=== PATIENT | female | born 1990 | race Caucasian/White ===

== ENCOUNTER → 2018-05-31 09:54 | Outpatient (CLI) | payer OTHER, SELFPAY ==
--- NOTE | 2018-05-31 09:56 | DI.RAD.S_ITS ---
PROCEDURE: XR KNEE LT 3V INDICATIONS: L knee pain TECHNIQUE: 3 views of the knee were acquired. COMPARISON: None. FINDINGS: Bones: No fractures or dislocations. No suspicious bony lesions. Soft tissues: No joint effusion. No suspicious soft tissue calcifications. IMPRESSION: No fracture. No osseous lesion. If symptoms and/or clinical suspicion for pathology persists, further assessment with repeat radiographs (7-10 days) or advanced imaging (e.g. CT, MRI or bone scan) may be helpful. Dictated by: Ashtyn Miranda MD, PhD on 05/31/2018 at 10:17 Approved by: Ashtyn Miranda MD, PhD on 05/31/2018 at 10:17
== END ==
PROVIDERS: PCP Family Medicine; Visit Provider Physician Assistant
DX: M25.562 Pain in left knee (principal)
CPT/HCPCS: 73562

== ENCOUNTER → 2019-05-31 12:45 | Outpatient (CLI) | payer OTHER, SELFPAY ==
[2019-05-31 13:56] LABS: Appearance Urine UA CLEAR; Bilirubin Urine UA NEGATIVE (NEGATIVE); Color Urine UA YELLOW; Glucose Urine UA NEGATIVE (Negative); Ketones Urine UA NEGATIVE (NEGATIVE); Leukocyte Esterase Urine UA 1+ (NEGATIVE); Nitrite Urine UA NEGATIVE (Negative); Occult Blood Urine UA 2+ (Negative); Protein Urine UA NEGATIVE (Negative); Specific Gravity Urine UA <=1.005 (1.000-1.035); Urobilinogen Urine UA 0.2 E.U./dL (0.2)
[2019-05-31 14:24] LABS: pH Urine UA 6.5 (4.5-8.0)
[2019-05-31 14:29] LABS: Bacteria Urine Many (>30); Culture Indicated Urine Specimen Cultured; RBC Urine 1-5/HPF (0-5/HPF); Squamous Epithelial Cell Urine 1-5 /HPF (0-5/HPF); WBC Urine 5-10/HPF (0-5/HPF)
== END ==
PROVIDERS: PCP Family Medicine; Visit Provider Family Medicine
DX: R30.0 Dysuria (principal); R31.9 Hematuria, unspecified
CPT/HCPCS: 81001; 87077; 87086; 87186

== ENCOUNTER → 2020-10-04 14:41 | Outpatient (CLI) | payer OTHER, SELFPAY ==
--- NOTE | 2020-10-04 14:42 | DI.RAD.S_ITS ---
PROCEDURE: XR ELBOW RT MIN 3V INDICATIONS: r elbow pain TECHNIQUE: 3 views of the elbow were acquired. COMPARISON: [facility], CR, XR FOREARM RT 2V, 10/04/2020, 14:47. [facility], , FOREARM RIGHT, 02/15/2014, 17:59. FINDINGS: Bones: Mild irregularity at the radial head seen only on 1 projection. No dislocations. No suspicious bony lesions. Soft tissues: Small posterior elbow joint effusion. No suspicious soft tissue calcifications. IMPRESSION: Mild irregularity at the radial head seen only on 1 projection. Small posterior elbow joint effusion. Findings suspicious for nondisplaced fracture. Correlate for point tenderness. Additional views of the radial head or CT may be helpful for further evaluation. Dictated by: Lex Garcia M.D. on 10/04/2020 at 14:33 Approved by: Lex Garcia M.D. on 10/04/2020 at 14:37
--- NOTE | 2020-10-04 14:42 | DI.RAD.S_ITS ---
PROCEDURE: XR FOREARM RT 2V INDICATIONS: r forearm pain TECHNIQUE: 2 views of the forearm were acquired. COMPARISON: [facility], VLAD, XR ELBOW RT MIN 3V, 10/04/2020, 14:49. [facility], VLAD, FOREARM RIGHT, 02/15/2014, 17:59. FINDINGS: Bones: No fractures or dislocations. No suspicious bony lesions. Soft tissues: No suspicious soft tissue calcifications or masses. IMPRESSION: No acute osseous abnormality. Dictated by: Lex Garcia M.D. on 10/04/2020 at 14:31 Approved by: Lex Garcia M.D. on 10/04/2020 at 14:33
== END ==
PROVIDERS: PCP Family Medicine; Referring Provider Physician Assistant; Visit Provider Physician Assistant
DX: M25.521 Pain in right elbow (principal); M79.601 Pain in right arm; M25.421 Effusion, right elbow
CPT/HCPCS: 73080; 73090

== ENCOUNTER → 2020-10-09 11:13 | Outpatient (CLI) | payer OTHER, SELFPAY ==
--- NOTE | 2020-10-09 11:32 | DI.CT.S_ITS ---
PROCEDURE: CT UE RT WO CON INDICATIONS: Displaced fracture of head of right radius, initia TECHNIQUE: Noncontrast 1-1.5 mm axial sections were acquired through the elbow joint, with coronal and sagittal reformats. COMPARISON: [facility], CR, XR ELBOW 1 OR 2 VIEWS RIGHT, 10/06/2020, 11:03. [facility], CR, XR ELBOW RT MIN 3V, 10/04/2020, 14:49. FINDINGS: Image quality: Excellent. Bones: Displaced fracture of the radial head. Fracture involves the anterior-medial margin of the radial head. Fracture is displaced/depressed approximately 2 millimeters. No dislocation/subluxation. Soft tissues: Elbow joint effusion noted. No soft tissue fluid collections or edema. IMPRESSION: Radial head fracture. Dictated by: Ashtyn Miranda MD, PhD on 10/09/2020 at 11:51 Approved by: Ashtyn Miranda MD, PhD on 10/09/2020 at 11:54
== END ==
PROVIDERS: PCP Family Medicine; Referring Provider Orthopaedic Surgery; Visit Provider Orthopaedic Surgery
DX: S52.121A Displaced fracture of head of right radius, initial encounter for closed fracture (principal); X58.XXXA Exposure to other specified factors, initial encounter
CPT/HCPCS: 73200

== ENCOUNTER → 2020-10-14 09:44 | Outpatient (CLI) | payer OTHER, SELFPAY ==
[2020-10-14 11:06] LABS: COVID19 -Nasal RAPID Negative (Negative)
== END ==
PROVIDERS: PCP Family Medicine; Visit Provider Student in an Organized Health Care Education/Training Program
DX: Z20.822 Contact with and (suspected) exposure to COVID-19 (principal)
CPT/HCPCS: 87635

== ENCOUNTER 2020-10-15 09:18 | Day surgery (SDC) | payer OTHER, SELFPAY ==
[2020-10-15] MEDS: LACTATED RINGERS 1,000 ML 42 ML IV (09:49)
[2020-10-15] MEDS: GABAPENTIN 300 MG CAPSULE PO (09:54)
[2020-10-15] MEDS: SCOPOLAMINE 1 PATCH TOP (09:54)
[2020-10-15] MEDS: ACETAMINOPHEN 325 MG TABLET 975 MG PO (09:54)
[2020-10-15 10:10] VITALS: BP 116/86; PULSE 96; RESP 11; TEMP 37.3; O2SAT 99; BMI 29.9
--- NOTE | 2020-10-15 10:32 | PM.PREOP ---
Pre-operative Note COVID-19 COVID-19 status: Negative Result date/Date tested (Pos, Neg/Pending): 10/14/20 Interval Note History & Physical reviewed/Exam performed by Physician: Yes Changes to H&P: No
--- NOTE | 2020-10-15 10:32 | PM.HP.1 ---
History of Present Illness History of Present Illness Date Patient Seen: 10/15/20 Time Patient Seen: 10:32 Chief complaint: SDC Narrative: 30-year-old female status post a fall resulting in a right radial head fracture Patient History Medical History Radial head fracture Family & Social History Social History: household members spouse Tobacco & Substance use: Smoking Status Never smoker alcohol intake current alcohol intake frequency a few times a week Substance Use Type other Meds Home Medications and Allergies Home Medications Medication Instructions Recorded Confirmed Type levalbuterol tartrate 45 2 puff INHALATION Q4HP #1 10/01/18 10/15/20 Rx mcg/actuation aerosol inhaler inhalation norethindrone acetate 1 mg-ethinyl See Rx Instructions .ROUTE 10/06/20 10/15/20 Rx estradiol 20 mcg tablet .COMPLEX #63 tab Allergies Allergy/AdvReac Type Severity Reaction Status Date / Time No Known Drug Allergies Allergy Verified 10/15/20 10:00 Review of Systems Review of Systems ROS: Yes All systems reviewed with the patient and are negative except as otherwise documented Exam Vital Signs (past 8 hours): - 10/15/20 10:10 Temperature 99.2 F Pulse Rate 96 H Respiratory Rate 11 L Blood Pressure 116/86 Pulse Oximetry 99 Oxygen Delivery Method Room Air Narrative Exam Narrative: Patient was some bruising and swelling over the lateral aspect of the elbow. Patient's skin intact. Is able to gently range the elbow but with some pain. No sign of any instability. Full range of motion of the wrist and fingers. Ulnar, median, and radial nerve is intact both motor and sensory function. Assessment & Plan Assessment & Plan narrative: Patient with a displaced radial head fracture requiring surgical fixation. I went over the risks and limitations associated with the procedure and all of her questions and concerns were answered to her full satisfaction. The risk, benefits, alternatives, possible complications, operative course, and postop outcomes were discussed. Complications including but not limiting to bleeding, infection, fracture, nerve injury, continued pain postoperatively or instability postoperatively were discussed in detail. Medical complications including but not limited to deep venous thrombosis event, anesthesia complications with excessive bleeding, vascular events or cardiac events and other possible complications were discussed in detail. Need for postoperative rehabilitation and anticipated hospital stay and clinical course were discussed in detail. Patient acknowledges understanding and elects to proceed with surgery.
--- NOTE | 2020-10-15 11:18 | SUR.PREOP ---
Block start time 1109 . Monitoring initiated and maintained throughout procedure. No Oxygen and medications given per anesthesiologist instructions. Patient remained stable throughout procedure, no adverse reactions noted. Block end time 1113.
[2020-10-15] MEDS: CEFAZOLIN 2 GM/100 ML FROZ.PIGGY IV (11:30)
--- NOTE | 2020-10-15 11:37 | PM.PROC.1 ---
Procedures Date/Time Date of procedure: 10/15/20 Time of procedure: 11:13 Nerve Block Time out performed: Yes Nerve blocks: brachial plexus (supraclavicular) Procedure successful: Yes Patient tolerated procedure: well Complications: none Additional comments: Supraclavicular Block for post-op pain at surgeon request. Patient was positioned, IV, O2, monitors and rescue meds available. Prepped, timeout performed. Target identified under continuous ultrasound guidance. 15mL of bupivicaine 0.5% injected with intermittent aspiration. Picture taken and saved on machine (used the ED ultrasound for adequate nerve visualization, but lacks a printer; will attempt to upload the picture to EMR). No blood, no paresthesias, no acute complications. Patient endorses arm numbness prior to anesthesia induction. Joaquina VARGHESE Anesthesiologist
--- NOTE | 2020-10-15 11:52 | SUR.OPER ---
Supine on padded OR bed, head on pillow, left arm secured on padded arm board at <90 degrees abduction, Right arm on large padded arm board controlled by surgeon, legs uncrossed, safety belt at thigh, tape over blanket over lower legs.
[2020-10-15 12:47] VITALS: BP 115/77; PULSE 113; RESP 14; TEMP 36.7; O2SAT 96
--- NOTE | 2020-10-15 12:50 | PM.OP.1 ---
Operative Date/Time/Diagnoses Date of procedure: 10/15/20 Time of procedure: 11:30 Pre-op diagnosis: Radial head fracture Post-op diagnosis: same Procedure & Clinicians Procedure: Open reduction internal fixation of a radial head fracture Same procedure as scheduled: Yes Indications: Displaced radial head Surgeon: Fox Noble Click Yes if Unassisted: No Anesthesia Type: General and Peripheral nerve block Operative Notes Findings: Displaced radial head fracture in 3 separate pieces. Small area of cartilage loss at the capitellum. Small loose body of cartilage in the joint space. No sign of any ligamentous instability. Closure Type: primary Applied: implant(s) (Two AcuTrak screws. 16 mm mini screw and a 14 mm micro screw) Estimated Blood Loss (mL): 5 Blood products transfused: none Tourniquet time (min): 55 Procedure in detail: On date of service, patient was met in the holding area where the operative site was signed and witnessed by the OR staff. The surgery was once again discussed with the patient and any remaining questions or concerns were answered to the patient's full satisfaction. Time-out was performed verifying patient's name procedure and operative site. Patient was taken back to the operating theater and placed on the operating table in a supine position. Great care was taken to ensure that all bony prominences were appropriately padded. Well-padded tourniquet was placed up along the upper extremity. Another time-out was performed verifying patient's name, procedure, and operative site. The upper extremity was then prepped and draped in the normal sterile fashion. Esmarch was used to exsanguinate the limb and the tourniquet was turned up to 250 mm of mercury. A curvilinear incision was made centered over the radial head. Ten blade was used to incise through skin. Electrocautery used to achieve hemostasis. Continued sharp dissection was performed using the 15 blade. Retractors were placed to me a good visualization of the extensor tendons attached to the lateral epicondyle. A Kohker approach was performed splitting the interval at the extensor tendons giving us good visualization of the radial head. Suction and irrigation was used to remove this remaining hematoma. There was a small flap of cartilage tissue in the joint space which was removed as well. No sign of any other significant bony injury. Patient did have a small area of loss of cartilage on the capitellum. Using a Guthrie elevator, both fragments of the radial head fracture were elevated and reduced decreasing the step-off at the articular surface as well as the gapping at the fracture site. K-wires were placed for provisional fixation and a 2 point reduction forceps was also used to compress and stabilize the fracture fragments. C-arm was brought in verifying overall reduction. Once we were satisfied with the reduction the K-wire lengths were measured in a additional K-wire was placed for a de-rotational fixation. The drill was used to drill to the appropriate length of the AcuTrak screw. And in the AcuTrak screw was placed in the 1st fragment providing significant compression at fracture site. A smaller AcuTrak screw was placed at the smaller fragment providing similar compression and fixation. Elbow was taken through range of motion in both flexion and extension as well as supination and pronation with no sign of any locking or catching. The wound was evaluated once again and no sign of any other additional bony or cartilage fragments. The joint space was copiously irrigated and then the wound was closed in a layered fashion. The split in the extensor tendons and joint capsule was closed with Ethibond followed by Vicryl and Monocryl. The wound was cleaned, dried, and dressed the patient was placed into a posterior splint. Patient was extubated and taken to the PACU in stable condition. Complications: none Post-operative Condition: stable Disposition: PACU Plan for aftercare: No restrictions of range of motion. But will limit lifting for the next 6 weeks.
[2020-10-15 12:52] VITALS: BP 120/69; PULSE 90; RESP 14; O2SAT 94
[2020-10-15 12:57] VITALS: BP 110/64; PULSE 86; RESP 14; TEMP 36.6; O2SAT 95
--- NOTE | 2020-10-15 13:04 | SUR.PHASEI ---
Surgeon placed prescriptions for Percocet 5mg tabs and Vistaril 25mg caps on pt chart for pt to take to her pharmacy at discharge.
--- NOTE | 2020-10-15 13:06 | SUR.PHASEI ---
Surgeon updated pt that he has spoken with Eliana (family memebr)
[2020-10-15] MEDS: OXYCODONE IR 5 MG TABLET PO (13:09)
[2020-10-15] MEDS: ONDANSETRON 4 MG/2 ML INJ IV (13:09)
[2020-10-15 13:20] VITALS: BP 114/67; PULSE 88; RESP 14; TEMP 36.6; O2SAT 94
[2020-10-15 13:42] VITALS: BP 119/71; PULSE 81; RESP 13; TEMP 36.2; O2SAT 95
== END 2020-10-15 14:04 | disposition home or self-care (01) ==
PROVIDERS: PCP Family Medicine; Referring Provider Family Medicine; Visit Provider Orthopaedic Surgery
PROC: 0RSL04Z Reposition Right Elbow Joint with Internal Fixation Device, Open Approach (ICD-10-PCS; CPT 24665; principal; 2020-10-15 10:45)
DX: S52.124A Nondisplaced fracture of head of right radius, initial encounter for closed fracture (principal); W01.0XXA Fall on same level from slipping, tripping and stumbling without subsequent striking against object, initial encounter; Y93.51 Activity, roller skating (inline) and skateboarding; J45.909 Unspecified asthma, uncomplicated
CPT/HCPCS: 24665; 64450; J0690; J1100; J2250; J2405; J2704

== ENCOUNTER 2022-09-09 08:01 | Day surgery (SDC) | payer OTHER, SELFPAY ==
[2022-09-06 15:22] VITALS: BMI 33.9
--- NOTE | 2022-09-09 | PATH_ITS ---
[facility] Accession Number: [id number] No. of containers..01 Tissue . 01 Material submitted: . cervix - CUT AT 12 O'CLOCK . 01 Diagnosis: A. 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 HSIL appears free from all inked/cauterized margins. Negative for glandular dysplasia and invasive malignancy. . COMMENT: HSIL is present in the 12-3-6-9 o'clock quadrants. [facility] 09/15/2022 1643 Local . 01 Electronically signed: . Radha Nevarez MD, Pathologist NPI- [id number] . 01 Gross description: . The specimen is received in formalin labeled with the patient's name, , and LEEP cone cut at 12 o'clock, and consists of an incised circular excision of cervix with the cut designating 12 o'clock per the requisition. The specimen measures 2.3 cm from 12 o'clock to 6 o'clock, 1.7 cm from 3 o'clock to 9 o'clock, and is excised to a depth of 0.7 cm. The ectocervix is overton, soft, and finely granular. The cervical os is reapproximated to be slit like and measures 0.3 cm in diameter. The endocervical margin is inked orange while the remaining stromal margins are inked blue. The specimen is radially sectioned and submitted entirely as follows: A1: 12 o'clock to 3 o'clock. A2: 3 o'clock to 6 o'clock. A3: 6 o'clock to 9 o'clock. A4: 9 o'clock to 12 o'clock. ([id number]) /MIKEY 09/13/2022 1106 Local . 01 Pathologist provided ICD-10: N87.1 . 01 CPT . 941986 Specimen Comment: A courtesy copy of this report has been sent to [phone] Performed at: 01 [facility] [address] [place] [address], [place], [place] [id number] MD Avelino Ch MD Phone: [phone]
[2022-09-09] MEDS: LACTATED RINGERS 1,000 ML 42 ML IV (08:11)
[2022-09-09 08:28] VITALS: BP 117/81; PULSE 85; RESP 16; TEMP 36.3; O2SAT 100; BMI 33.3
--- NOTE | 2022-09-09 09:34 | PM.PREOP ---
Pre-operative Note COVID-19 COVID-19 status: Not tested Criteria for continued procedure: Non-surgical alternatives not available or appropriate per current SOC Interval Note History & Physical reviewed/Exam performed by Physician: Yes Changes to H&P: No
--- NOTE | 2022-09-09 10:01 | SUR.OPER ---
Lithotomy on padded OR bed, head on pillow, arms secured on padded arm boards at <90 degrees abduction. Legs secured in padded yellow fins stirrups. Pt positioned per direction and supervision of Dr Grey.
[2022-09-09] MEDS: POTASSIUM IODIDE/IODINE 473 ML SOLUTION TOP (10:05)
[2022-09-09] MEDS: ACETIC ACID 500 ML IRRIG 20 ML TOP (10:06)
[2022-09-09 10:17] VITALS: BP 136/88; PULSE 96; RESP 15; TEMP 36.8; O2SAT 98
--- NOTE | 2022-09-09 10:18 | P.OP_ITS ---
Operative Date/Time/Diagnoses Date of procedure: 09/09/22 Time of procedure: 09:50 Pre-op diagnosis: High-grade dysplasia of the cervix Post-op diagnosis: same Procedure & Clinicians Procedure: Procedures Operation Date: 09/09/22 09:15 Actual Procedure Side Surgeon p LEEP Procedure Not Applicable Miky Grey MD Indications: Joe is a 31 yo G0, LMP 08/08/2022 who presented in referral for her PCP for LEEP consult.? Pap smears were normal until her Pap in January 2021 which showed positive high-risk HPV (non 16/18/45) and no cytologic abnormalities except for some reactive changes.? Her more recent Pap smear performed in April 2022 however showed ASC-US with positive high-risk HPV and colposcopy performed in May 2022 showed ROSALIND 2 at 9:00 and a positive ECC with HGSIL (ROSALIND 2).? Counseled re: the nature of, causes of, and clinical course of HPV related HGSIL.? Options for treatment reviewed and patient desires to proceed with LEEP.? Patient presents today for her scheduled surgery.? Contraception is by monocyclic OC's. Surgeon: Miky Grey Anesthesia Type: General Operative Notes Findings: Well defined area of AWE at TZ, completely excised via LEEP. Closure Type: not applicable Specimen(s): other (LEEP cone, cut at 12:00, ECC) Estimated blood loss (mL): 25 Blood products transfused: none Procedure in detail: With the patient under satisfactory general anesthesia in the modified dorsal lithotomy position, the perineum was prepped and draped in the usual manner for LEEP procedure. A pre-surgical safety time-out was then taken in accordance with [facility] Main OR protocols. A LEEP speculum was then inserted in the vagina and the cervix easily visualized. Vinegar was placed in the vagina and sufficient time was taken to permit development of AWE. Once the area to be sized was well identified, loop excision was performed with a 20 x 15 mm loop using 50 w of pure cut. Specimen was cut at 12:00 p.m. and submitted as a pathologic specimen. ECC was performed with work-in box curette producing minimal amounts of additional tissue. Using a ball cautery with 60 w of coagulation, the LEEP bed was rendered completely hemostatic. Procedure was then terminated by removal of the LEEP speculum from the vagina. Patient was awakened and transferred to the PACU for a period of observation and recovery after having tolerated the procedure well. Complications: none Post-operative Condition: stable Disposition: PACU Plan for aftercare: Routine postoperative care
[2022-09-09 10:24] VITALS: BP 139/70; PULSE 105; RESP 15; O2SAT 96
[2022-09-09 10:26] VITALS: BP 122/87; PULSE 102; RESP 14; TEMP 36.4; O2SAT 97
== END 2022-09-09 10:47 | disposition home or self-care (01) ==
PROVIDERS: PCP Family Medicine; Referring Provider Obstetrics & Gynecology; Visit Provider Obstetrics & Gynecology
PROC: 0UBC7ZZ Excision of Cervix, Via Natural or Artificial Opening (ICD-10-PCS; CPT 57522; principal; 2022-09-09 09:15)
DX: N87.1 Moderate cervical dysplasia (principal)
CPT/HCPCS: 57522; 81025; J1100; J1885; J2250; J2405; J2704; J3010

== ENCOUNTER → 2024-10-28 10:35 | Outpatient (CLI) | payer OTHER, SELFPAY ==
[2024-10-28 11:34] LABS: Influenza A - CEPHEID Flu A NEGATIVE (NEGATIVE); Influenza B - CEPHEID Flu B NEGATIVE (NEGATIVE); Respiratory Syncytial Virus Negative (Negative)
[2024-10-28 11:39] LABS: COVID-19 CEPHEID 4-PLEX PCR Negative (Negative)
== END ==
PROVIDERS: PCP Family Medicine; Visit Provider Nurse Practitioner Family
DX: R05.1 Acute cough (principal)
CPT/HCPCS: 0241U; 87070

== ENCOUNTER → 2025-06-30 09:33 | Outpatient (CLI) | payer OTHER, SELFPAY ==
[2025-06-30 13:41] LABS: Urine N gonorrhoeae NOT DETECTED
[2025-06-30 13:42] LABS: Urine Chlamydia NOT DETECTED
[2025-07-01 17:01] LABS: Hepatitis B Surface Antigen NEGATIVE s/c (NEGATIVE)
[2025-07-01 17:17] LABS: HIV 1 & 2 Ab/Ag 4th Gen Combo NEGATIVE (NEGATIVE); Hep C Virus Ab w/Reflex Quant NEGATIVE s/c (NEGATIVE)
== END ==
PROVIDERS: PCP Family Medicine; Referring Provider Family Medicine; Visit Provider Family Medicine
DX: Z11.3 Encounter for screening for infections with a predominantly sexual mode of transmission (principal)
CPT/HCPCS: 36415; 86592; 86803; 87340; 87389; 87491; 87591